=== PATIENT | male | born 1930 | race Native Hawaiian/Other Pacific Islander ===

== ENCOUNTER 2016-12-23 11:07 | Emergency (ER) | payer SELFPAY ==
--- NOTE | 2016-12-23 11:55 | C.PDOC ---
History Of Present Illness 86 yr old male brought in by family members, presents to the ER for evaluation of right ear hearing changes since yesterday. Patient denies fever, chills, dizziness, vertigo, vision changes, ear discharge, headache, tinnitus, denies neck pain, CP, SOB, abd. pain, N/V, or any other active complaints, Ambulate to ED, not in nay apparent distress. Time Seen by Provider: 12/23/16 11:40 Chief Complaint (Nursing): ENT Problem History Per: Patient History/Exam Limitations: None Onset/Duration Of Symptoms: Days Current Symptoms Are (Timing): Still Present Quality (Ear): denies: Swelling, Discharge Past Medical History Reviewed: Historical Data, Nursing Documentation, Vital Signs Vital Signs: Last Vital Signs Temp 98.2 F 12/23/16 11:59 Pulse 60 12/23/16 11:59 Resp 16 12/23/16 11:59 BP 111/60 12/23/16 11:59 Pulse Ox 97 12/23/16 12:14 - Medical History PMH: HTN Family History: States: No Known Family Hx - Social History Hx Alcohol Use: No Hx Substance Use: No - Immunization History Hx Tetanus Toxoid Vaccination: No Hx Influenza Vaccination: No Hx Pneumococcal Vaccination: No Review Of Systems Except As Marked, All Systems Reviewed And Found Negative. Constitutional: Negative for: Fever, Chills Eyes: Negative for: Vision Change ENT: Positive for: Other ((+) Right ear hearing changes). Negative for: Ear Discharge Musculoskeletal: Negative for: Neck Pain, Back Pain Neurological: Negative for: Weakness, Numbness, Headache Physical Exam - Physical Exam Appears: Well, Non-toxic, No Acute Distress Skin: Normal Color, Warm, Dry, No Rash Eye(s): bilateral: PERRL Ear(s): Left: Normal, Right: TM Obscured By Wax (ear canal complete obsecure) Nose: No Flaring, No Discharge, No Tenderness Oral Mucosa: Moist Throat: No Erythema, No Exudate, No Drooling Neck: Trachea Midline, Supple Lymphatic: No Adenopathy (cervical) Extremity: Normal ROM, No Pedal Edema Neurological/Psych: Oriented x3, Normal Speech, Normal Motor, Normal Sensation, Normal Reflexes ED Course And Treatment O2 Sat by Pulse Oximetry: 97 (RA) Pulse Ox Interpretation: Normal Progress Note: On re-evaluation, pt is afebrile, hemodynamicaly stable. Non- toxic. ENT: exam c/w Right ear canal cerum impcation. left ear: normal exam. neuorlogicaly intact. Family advised on course of ds. ref. to F/u with PMD, ENT In 2 days for re-evaluation. Return if any new changes. Disposition Counseled Patient/Family Regarding: Diagnosis, Need For Followup, Rx Given - Disposition Referrals: Musa Candelaria MD [Staff Provider] - Disposition: HOME/ ROUTINE Disposition Time: 11:51 Condition: STABLE Additional Instructions: Use medication as prescribed Follow up with ENT in 2-3 days fir no improvement in symptoms. Return to ED if any worsening or new changes. Prescriptions: Carbamide Peroxide [Debrox] 2 drop AD BID #1 bottle Instructions: Cerumen Impaction (ED) Forms: [employer] (Korean) - Clinical Impression Clinical Impression: Cerumen impaction - PA / CAR SCRUBBER / Resident Statement MD/DO has reviewed & agrees with the documentation as recorded. - Scribe Statement The provider has reviewed the documentation as recorded by the Scribe Opal Barahona All medical record entries made by the Scribe were at my direction and personally dictated by me. I have reviewed the chart and agree that the record accurately reflects my personal performance of the history, physical exam, medical decision making, and the department course for this patient. I have also personally directed, reviewed, and agree with the discharge instructions and disposition.
[2016-12-23 12:00] VITALS: BP 111/60; PULSE 60; RESP 16; TEMP 98.2
[2016-12-23 12:14] VITALS: O2SAT 97
== END 2016-12-23 11:59 | disposition home or self-care (01) ==
LOC: C.ER 11:07
DX: H61.21 Impacted cerumen, right ear (principal); I10 Essential (primary) hypertension